=== PATIENT | female | born 1985 | race Caucasian/White ===

== ENCOUNTER 2023-01-11 14:40 | Emergency (ER) | payer SELFPAY ==
[2023-01-11 14:56] VITALS: BP 145/87; PULSE 87; RESP 18; TEMP 36.4; O2SAT 96; BMI 29.2
--- NOTE | 2023-01-11 15:46 | ED_ITS ---
HPI - Ear Problem General: Chief complaint: Ear Stated complaint: possible ear infection / rash on upper body Time Seen by Provider: 01/11/23 15:03 Source: patient Mode of arrival: ambulatory Limitations: no limitations History of Present Illness: Patient is a 37-year-old female here with complaints of left ear pain. Patient states she has a chronic history of mastoiditis and states she is originally from [place] and has an appointment scheduled with ENT in February to scrape the bone . She states she is here in [place] for an undisclosed amount of time as they are looking to move to the area. She is requesting ENT follow-up. She states last time she was on antibiotics was approximately 3 months ago and was placed on Amoxicillin. She also is having some sinus pressure/nasal congestion. MD Complaint: ear pain Location: left ear Duration: constant Severity: moderate Relieving factors: nothing Exacerbating factors: nothing Context: other (hx of chronic mastoiditis) Discharge from ear: no Associated symptoms: Reports ear or mastoid pain; Denies fever(s), headache(s), neck pain or tinnitus Treatment prior to arrival: none Review of Systems Const: Denies: fever(s), chills, body aches, fatigue or malaise Eyes: Denies: change in vision, blurry vision, photophobia, eye discomfort or eye discharge ENMT: Reports: ear or mastoid pain; Denies: throat pain, enlarged tonsils, odynophagia, swelling of lips/tongue, oral sores, ear discharge, change in hearing, tinnitus, disequilibrium, nasal discharge, nasal congestion, post nasal drip or sinus pain Card: Denies: chest pain Resp: Denies: dyspnea, productive cough or non-productive cough GI: Denies: nausea or vomiting Musc: Denies: neck pain Skin/Breast: Denies: rash Neuro: Denies: headache(s) All/Imm: Denies: facial swelling or seasonal rhinorrhea Physical Exam Const: COMMON NORMALS: no acute distress, patient oriented x3, no limitations, healthy appearing, alert and well nourished GENERAL APPEARANCE: cooperative ORIENTATION/CONSCIOUSNESS: Yes awake, Yes oriented to person, Yes oriented to place and Yes oriented to time HENMT: COMMON NORMALS: normocephalic, atraumatic, hearing grossly normal bilaterally, external ears normal, EAC's normal, Normal external nose present, Normal nasal mucous membranes and turbinates present, moist oral mucous membranes, oropharynx normal, dentition normal and gingiva normal HEAD & SCALP: normal to inspection, normocephalic and atraumatic FACE & SINUS: normal facial exam, face symmetric and sinus tenderness frontal and maxillary NOSE: Normal external nose present and Normal nasal mucous membranes and turbinates present EXTERNAL EAR: Yes external ears normal and Yes mastoids normal EXTERNAL AUDITORY CANAL: EAC's normal TYMPANIC MEMBRANE: TM normal on the right and TM abnormal TM laterality: left Details: dull, effusion and erythematous MOUTH: Normal oral and palatal mucosa present, lip normal and tongue normal THROAT: posterior oropharynx normal, tonsils normal and uvula midline Eye: COMMON NORMALS: Equal, round and reactive pupils present and EOMs intact bilaterally GENERAL EYE: appearance normal, both eyes and all related structures and normal light reflex PUPIL: Yes Equal, round and reactive pupils present DIRECT OPHTHALMOSCOPY: Yes normal light reflex Neck/C-Spine: COMMON NORMALS: no lymphadenopathy GENERAL: No anterior neck swelling and No submandibular swelling Resp: COMMON NORMALS: normal respiratory effort and clear to auscultation bilaterally AUSCULTATION: clear to auscultation bilaterally Cardio: COMMON NORMALS: regular rate and regular rhythm RATE: regular rate RHYTHM: regular rhythm Neuro: COMMON NORMALS: patient oriented x3 and CN's II-XII intact bilaterally SENSORIUM/ORIENTATION: Yes alert, Yes oriented to person, Yes oriented to place and Yes oriented to time Skin: COMMON NORMALS: no rashes or lesions noted GENERAL SKIN EXAM: no rashes or lesions noted Course Vital Signs: Vital signs: Vital Signs Temperature 97.5 F L 01/11/23 14:56 Pulse Rate 87 01/11/23 14:56 Respiratory Rate 18 01/11/23 14:56 Blood Pressure 145/87 01/11/23 14:56 Pulse Oximetry 96 01/11/23 14:56 Oxygen Delivery Me thod Room Air 01/11/23 14:56 MDM - Ear Medical Decision Making Patient is requesting ENT follow-up here. Case management referral placed for this. I will place her on Augmentin. Mastoid today is not tender, erythematous, or swollen. Discharge Plan Discharge Patient Disposition: Home Clinical Impression: Chronic mastoiditis of left side Acute otitis media Qualifiers: Otitis media type: suppurative Laterality: left Recurrence: recurrent Spontaneous tympanic membrane rupture: without spontaneous rupture Qualified Code(s): H66.005 - Acute suppurative otitis media without spontaneous rupture of ear drum, recurrent, left ear Condition: Stable Prescriptions: New amoxicillin-pot clavulanate 875-125 mg tablet 1 tab PO BID Qty: 14 0RF Discharge Orders: Discharge ED (Routine); Ordered 01/11/23 Ordered By: Cintia Salmeron Coding Level of Care Code ED Agronomy Instructor for Milton Oconnor
[2023-01-11] MEDS: ondansetron 4 MG Tablet PO (16:04)
--- NOTE | 2023-01-12 08:47 | DCPLANNER ---
Addendum entered by Aleyda Davalos 01/25/23 14:51: web site project manager received the following message from ENT regarding follow up appointment: Have been unable to reach patient left a vm on 01/18/23 Sending patient a letter letting them know we have been tryint to reach her and to call us to schedule and kayleigh. On 01/17/23 @ 16:36 Nahomi Bowles Wrote To ENT Front Office LVM On 01/13/23 @ 08:59 Timothy Zayas Wrote To ENT Front Office tried calling patient left vm. 01/13/23 Original Note: web site project manager had message to schedule a follow up appointment for patient with ENT. web site project manager sent patients information to the front office staff at ENT. Patients information will be printed and reviewed. Clinic will call patient with appointment information.
== END 2023-01-11 16:08 | disposition home or self-care (01) ==
PROVIDERS: Emergency Provider Physician Assistant
DX: H66.005 Acute suppurative otitis media without spontaneous rupture of ear drum, recurrent, left ear (principal); H70.12 Chronic mastoiditis, left ear
CPT/HCPCS: 99283; Q0162

== ENCOUNTER 2023-08-26 09:14 | Emergency (ER) | payer MEDICAID, SELFPAY ==
[2023-08-26] VITALS (31 sets, daily range): BP systolic 126–159; BP diastolic 80–124; PULSE 93; RESP 17–18; TEMP 36.6; O2SAT 94–100
--- NOTE | 2023-08-26 09:30 | USR_ITS ---
PROCEDURE INFORMATION: Exam: US Abdomen, Limited; Right Upper Quadrant Exam date and time: 08/26/2023 10:19 AM Age: 38 years old Clinical indication: Abdominal pain; Flank; Right upper quadrant (ruq); Additional info: Right upper quadrant pain with positive winter sign. , R/O gallbladder TECHNIQUE: Imaging protocol: Real time ultrasound of the abdomen with image documentation. Limited exam focused on the right upper quadrant. COMPARISON: CT kidney stone [id number] 08/26/2023 9:42 AM FINDINGS: Liver: The liver appears unremarkable. Gallbladder: The gallbladder is partially distended. No gallstones identified. No pericholecystic fluid. The gallbladder wall measures up to 3 mm in thickness but is not well distended. Biliary ducts: The common bile duct is within normal limits measuring up to 3 mm in diameter. Pancreas: The partially visualized pancreas is unremarkable. Right kidney: The right kidney measures 10.3 x 5.3 x 5.3 cm. Renal cortical thickness of 1.3 cm. No hydronephrosis. US/US abdomen limited [id number] IMPRESSION: No ultrasound evident acute right upper quadrant abnormality.
--- NOTE | 2023-08-26 09:30 | CTR_ITS ---
PROCEDURE INFORMATION: Exam: CT Abdomen And Pelvis Without Contrast Exam date and time: 08/26/2023 9:42 AM Age: 38 years old Clinical indication: Abdominal pain; Patient HX: PT arrives pov with chief complaint of right flank pain. PT states started having difficulty with urination yesterday, woke at 0400 this am with severe pain in right flank. PT states had some nausea and vomiting yesterday TECHNIQUE: Imaging protocol: Computed tomography of the abdomen and pelvis without contrast. Radiation optimization: All CT scans at this facility use at least one of these dose optimization techniques: automated exposure control; mA and/or kV adjustment per patient size (includes targeted exams where dose is matched to clinical indication); or iterative reconstruction. COMPARISON: No relevant prior studies available. RADIATION DOSE METRICS: Total DLP (mGy-cm): 518.26 FINDINGS: Liver: The liver is normal in size and contour. Gallbladder and bile ducts: The gallbladder appears unremarkable. No intra- or extra-hepatic biliary ductal dilatation. Pancreas: The pancreas appears normal. Spleen: Small splenules noted. The spleen appears unremarkable. Adrenal glands: The adrenals appear normal. Kidneys and ureters: No renal or ureteral stones. No perinephric or periureteral fat stranding. No signs of urinary obstruction. Stomach and bowel: The stomach is unremarkable. The small bowel loops are not abnormally dilated. The large bowel loops are not abnormally dilated. Appendix: The appendix appears normal. Intraperitoneal space: No ascites or significant fluid collection. Vasculature: The aorta is nonaneurysmal. The IVC appears normal. Lymph nodes: There are no enlarged lymph nodes. Urinary bladder: The urinary bladder is not well distended, therefore not well evaluated. Reproductive: Unremarkable as visualized. Bones/joints: Unremarkable. Soft tissues: 6 mm fat containing umbilical hernia. CT/CT kidney stone [id number] IMPRESSION: 1. No renal or ureteral stones. No perinephric or periureteral fat stranding. No signs of urinary obstruction. 2. No acute abdominopelvic abnormality identified. COMMENTS: Evaluation of solid organs and vascular structures is limited as no IV contrast was administered.
--- NOTE | 2023-08-26 09:30 | W.ED.ABDPA2 ---
HPI - Abdominal Pain General: Chief Complaint: Urogenital-Female Stated Complaint: abd pain, toruble urinating Time Seen by Provider: 08/26/23 09:23 History of Present Illness: The patient presents with a chief complaint of severe brain fog experienced yesterday, which led her to believe she was dehydrated. She reports drinking a whole bottle of Pedialyte quickly and only producing a small amount of urine. The patient also mentions waking up at 3 or 4 o'clock in the morning with severe pain in her right kidney area. She states that the nausea is still present but not as severe as before, and the main issue is the pain. The patient has a history of bladder infections in her 20s but denies any current pain with urination, foul-smelling urine, or blood in the urine. She reports constipation, with her last bowel movement occurring this morning, which was difficult and hard. The patient denies any vaginal bleeding and mentions that her last menstrual period ended a day and a half ago. Upon physical examination, the patient experiences pain when the abdomen is palpated, particularly in the right flank area. She denies pain in the lower abdomen and reports only mild discomfort in the middle of the abdomen. The patient confirms the presence of nausea associated with her symptoms. Associated Symptoms: Denies fever(s) Review of Systems General: Reports: 10 or more systems reviewed and unremarkable except in HPI and below Const: Denies: fever(s) Card: Denies: palpitations or edema Resp: Denies: dyspnea Skin/Breast: Denies: rash Physical Exam Const: COMMON NORMALS: no acute distress, patient oriented x3, healthy appearing, alert and well nourished HENMT: COMMON NORMALS: normocephalic HEAD & SCALP: normocephalic Eye: COMMON NORMALS: EOMs intact bilaterally Neck/C-Spine: COMMON NORMALS: full ROM and supple Resp: COMMON NORMALS: normal respiratory effort, No retractions and clear to auscultation bilaterally AUSCULTATION: clear to auscultation bilaterally Cardio: COMMON NORMALS: regular rate, regular rhythm, No gallops present (Cardio) and No murmurs present (Cardio) RATE: regular rate RHYTHM: regular rhythm GI: COMMON NORMALS: Soft to palpation and No hepatosplenomegaly present INSPECTION: Yes normal to inspection AUSCULTATION: Yes normoactive bowel sounds PALPATION: Yes Soft to palpation, Yes Tenderness to palpation present (GI) Details: RUQ, Yes No hepatosplenomegaly present, No Rebound tenderness present and No Bladder palpation abnormal : BLADDER/KIDNEY EXAM: No Bladder palpation abnormal and Yes CVA tenderness Back/Pelvis: GENERAL BACK: Yes CVA tenderness CVA tenderness: right Extremity: GENERAL: Yes normal exam except as noted Neuro: COMMON NORMALS: patient oriented x3 SENSORIUM/ORIENTATION: Yes alert Skin: COMMON NORMALS: no rashes or lesions noted GENERAL SKIN EXAM: no rashes or lesions noted Course Vital Signs: Vital signs: Vital Signs Temperature 97.9 F 08/26/23 09:22 Pulse Rate 93 08/26/23 09:22 Respiratory Rate 17 08/26/23 10:06 Blood Pressure 159/124 08/26/23 09:22 Pulse Oximetry 100 08/26/23 10:06 Oxygen Delivery Me thod Room Air 08/26/23 09:22 MDM - Abdominal Pain Medical Decision Making 38-year-old female presents to the emergency department for evaluation of abdominal pain,Flank pain, brain fog, nausea, and diarrhea. Patient's history and laboratory values ovation are consistent with UTI. Patient discharged home with Macrobid. Return precautions discussed. Patient discharged home in good condition. Differential Diagnosis Likely abdominal pain, acute appendicitis, constipation, gastroenteritis and small bowel obstruction Lab Data 08/26/23 09:32 08/26/23 09:32 Labs/Radiology: Radiology Impressions Abdomen Ultrasound 08/26/23 09:30 IMPRESSION: No ultrasound evident acute right upper quadrant abnormality. Abdomen/Pelvis CT 08/26/23 09:30 IMPRESSION: 1. No renal or ureteral stones. No perinephric or periureteral fat stranding. No signs of urinary obstruction. 2. No acute abdominopelvic abnormality identified. COMMENTS: Evaluation of solid organs and vascular structures is limited as no IV contrast was administered. Laboratory Results WBC 6.84 10^3/uL (3.29-11.43) 08/26/23 09:32 RBC 4.70 10^6/uL (3.85-5.65) 08/26/23 09:32 Hgb 14.40 g/dL (11.27-16.99) 08/26/23 09:32 Hct 41.8 % (36-47) 08/26/23 09:32 MCV 88.9 fl (85-98) 08/26/23 09:32 MCH 30.6 pg (27-33) 08/26/23 09:32 MCHC 34.4 g/dL (30-55) 08/26/23 09:32 RDW 12.3 % (12.1-15.1) 08/26/23 09:32 Plt Count 257 10^3/cmm (157-399) 08/26/23 09:32 MPV 10.1 fL (7.4-10.4) 08/26/23 09:32 Neut % (Auto) 58.4 % 08/26/23 09:32 Lymph % (Auto) 34.5 % 08/26/23 09:32 [place] % (Auto) 4.8 % 08/26/23 09:32 Eos % (Auto) 1.8 % 08/26/23 09:32 Baso % (Auto) 0.4 % 08/26/23 09:32 Neut # (Auto) 3.99 10^3/uL (1.8-7.7) 08/26/23 09:32 Lymph # (Auto) 2.4 10^3/uL (0.8-4.8) 08/26/23 09:32 [place] # (Auto) 0.3 10^3/uL (0.2-0.9) 08/26/23 09:32 Eos # (Auto) 0.1 10^3/uL (0.0-0.8) 08/26/23 09:32 Baso # (Auto) 0.0 10^3/uL (0.0-0.1) 08/26/23 09:32 Nucleated RBC % (auto) 0 % 08/26/23 09:32 Nucleated RBCs # 0.0 /100WBC 08/26/23 09:32 Sodium 140 mmol/L (136-145) 08/26/23 09:32 Potassium 4.3 mmol/L (3.5-5.1) 08/26/23 09:32 Chloride 108 mmol/L (98-107) H 08/26/23 09:32 Carbon Dioxide 23 mmol/L (22-29) 08/26/23 09:32 Anion Gap 13.3 (5-19) 08/26/23 09:32 BUN 10 mg/dL (6-20) 03/30/24 09:32 Creatinine 0.8 mg/dL (0.5-0.9) 08/26/23 09:32 GFR Calculation 79.4 mL/min (90-130) L 08/26/23 09:32 Glucose 86 mg/dL (65-115) 08/26/23 09:32 Calculated Osmolality 288 mOsm/kg (285-295) 08/26/23 09:32 Calcium 9.4 mg/dL (8.5-10.5) 08/26/23 09:32 Total Bilirubin 0.5 mg/dL (0.15-1.2) 08/26/23 09:32 AST 15 U/L (0-32) 08/26/23 09:32 ALT 20 U/L (0-33) 08/26/23 09:32 Alkaline Phosphatase 74 U/L (35-105) 08/26/23 09:32 Total Protein 6.8 g/dL (6.6-8.7) 08/26/23 09:32 Albumin 4.2 g/dL (3.5-5.2) 08/26/23 09:32 Globulin 2.6 g/dL (1.3-4.6) 08/26/23 09:32 HCG, Qual Negative (Negative) 08/26/23 09:22 Urine Color Yellow (Yellow) 08/26/23 09:22 Urine Appearance Hazy (CLEAR) A 08/26/23 09:22 Urine pH 6 (5-7) 08/26/23 09:22 Ur Specific [place] 1.015 (1.005-1.030) 08/26/23 09:22 Urine Protein Neg (Negative) 08/26/23 09:22 Urine Glucose (UA) Norm (Normal) 08/26/23 09:22 Urine Ketones Negative (Negative) 08/26/23 09:22 Urine Blood 3+ (Negative) H 08/26/23 09:22 Urine Nitrate Negative (Negative) 08/26/23 09:22 Urine Bilirubin Neg (Negative) 08/26/23 09:22 Urine Urobilinogen Norm mg/dL (Negative) 08/26/23 09:22 Ur Leukocyte Esterase 2+ (Negative) H 08/26/23 09:22 Urine RBC 0-4 /hpf (0-2) H 03/30/24 09:22 Urine WBC 5-10 /hpf (0-5) H 08/26/23 09:22 Ur Squamous Epith Cells 5-10 /hpf (0-5) H 08/26/23 09:22 Amorphous Sediment Not Reportable 08/26/23 09:22 Urine Bacteria 2+ /hpf (NONE) H 08/26/23 09:22 All radiology interpretation(s) finalized by discharge Discharge Plan Discharge Patient Disposition: Home Clinical Impression: Cystitis Condition: Stable Prescriptions: New nitrofurantoin macrocrystal [Macrodantin] 100 mg capsule 100 mg PO Q12H 7 Days Qty: 14 0RF Rx Instructions: must administer with a meal/food No Action multivitamin Tablet 1 tab PO QAM Discharge Orders: Discharge ED (Routine); Ordered 08/26/23 Ordered By: Tushar Chavez Discharge Diet: Advance as tolerated Discharge Activity: Resume usual activity Patient Instructions: Opioid Safety, Pain Management Activity Restrictions/Additional Instructions: Follow-up with your primary care physician next week if symptoms persist. Return to the emergency department if you are not tolerating oral fluids for 1 day, abdominal pain not controlled by Tylenol, persistent fever greater than 100.5. Coding Level of Care Code ED Planned Giving Officer for Milton Oconnor
[2023-08-26 09:42] LABS: Basophils % 0.4 %; Eosinophils # 0.1 10^3/uL (0.0-0.8); Eosinophils % 1.8 %; Hematocrit 41.8 % (36-47); Lymphocytes # 2.4 10^3/uL (0.8-4.8); Lymphocytes % 34.5 %; Mean Corpuscular HGB Conc 34.4 g/dL (30-55); Mean Corpuscular Hemoglobin 30.6 pg (27-33); Mean Corpuscular Volume 88.9 fl (85-98); Mean Platelet Volume 10.1 fL (7.4-10.4); Monocytes # 0.3 10^3/uL (0.2-0.9); Monocytes % 4.8 %; Neutrophils # 3.99 10^3/uL (1.8-7.7); Neutrophils % 58.4 %; Nucleated Red Blood Cells % 0 %; Platelet Count 257 10^3/cmm (157-399); Red Cell Distribution Width 12.3 % (12.1-15.1); White Blood Count 6.84 10^3/uL (3.29-11.43)
[2023-08-26 09:46] LABS: HCG Qualitative Urine. Negative (Negative)
[2023-08-26 10:01] LABS: Add Urine Microscopic? YES; Bilirubin Urine Neg (Negative); Blood Urine 3+ (Negative); Glucose Urine UA Norm (Normal); Ketones Urine Negative (Negative); Leukocyte Esterase Urine 2+ (Negative); Nitrate Urine Negative (Negative); Protein Urine Neg (Negative); Specific Gravity, Urine 1.015 (1.005-1.030); Urine Appearance Hazy (CLEAR); Urine Color Yellow (Yellow); Urobilinogen Urine Norm (Negative); pH Urine 6 (5-7)
[2023-08-26 10:01] LABS: Alanine Aminotransferase 20 U/L (0-33); Albumin Level 4.2 g/dL (3.5-5.2); Alkaline Phosphatase 74 U/L (35-105); Anion Gap 13.3 (5-19); Aspartate Amino Transferase 15 U/L (0-32); Blood Urea Nitrogen 10 mg/dL (6-20); Calcium 9.4 mg/dL (8.5-10.5); Carbon Dioxide 23 mmol/L (22-29); Chloride 108 mmol/L (98-107); Creatinine Clr Calc Pharmacy 121.5913; Globulin 2.6 g/dL (1.3-4.6); Glomerular Filtration Rate 79.4 mL/min (90-130); Glucose 86 mg/dL (65-115); Osmolality Calculated 288 mOsm/kg (285-295); Potassium 4.3 mmol/L (3.5-5.1); Sodium 140 mmol/L (136-145); Total Bilirubin 0.5 mg/dL (0.15-1.2); Total Protein 6.8 g/dL (6.6-8.7)
[2023-08-26 10:02] LABS: Add Urine Culture? Yes; Bacteria Urine 2+ /hpf; RBC Urine 0-4 /hpf (0-2)
[2023-08-26] MEDS: ondansetron 2 mg/ML SDV 2 mL 4 MG IVP (10:05)
[2023-08-26] MEDS: morphine 4 mg/mL SDV 1 mL IVP (10:06)
[2023-08-26] MEDS: sodium chloride 0.9% 1,000 ML 999 ML IV (11:51)
== END 2023-08-26 13:12 | disposition home or self-care (01) ==
PROVIDERS: Emergency Provider General Practice
DX: N30.90 Cystitis, unspecified without hematuria (principal)
CPT/HCPCS: 74176; 76705; 80053; 81001; 81025; 85025; 87086; 96361; 96374; 96375; 99285; J2270; J2405; J7030

== ENCOUNTER → 2023-09-04 12:12 | Outpatient (BNVA) | payer BC, MEDICAID, SELFPAY | PROVIDERS: Visit Provider Nurse Practitioner Family | DX: R39.9 Unspecified symptoms and signs involving the genitourinary system (principal) | CPT/HCPCS: 81000; 87086 ==